=== PATIENT | female | born 1995 | race Two or more races ===

== ENCOUNTER 2025-04-23 20:21 | Observation (INO) | payer MEDICAID, SELFPAY ==
[2025-04-23] VITALS (9 sets, daily range): BP systolic 103; BP diastolic 61; PULSE 87–121; RESP 16–98; TEMP 36.6; O2SAT 97–99; BMI 35.4
== END 2025-04-23 21:15 | disposition home or self-care (01) ==
PROVIDERS: Admitting Provider Obstetrics & Gynecology; PCP Specialist; Visit Provider Obstetrics & Gynecology
DX: O26.853 Spotting complicating pregnancy, third trimester (principal); Z3A.31 31 weeks gestation of pregnancy
CPT/HCPCS: 59025; 59899

== ENCOUNTER 2025-05-10 17:36 | Observation (INO) | payer MEDICAID, SELFPAY ==
[2025-05-10] VITALS (33 sets, daily range): BP systolic 92–109; BP diastolic 56–71; PULSE 73–117; RESP 18–96; TEMP 36.9–37.1; O2SAT 96–100; BMI 36.7
--- NOTE | 2025-05-10 18:02 | XR_ITS ---
Examination: Complete OB ultrasound greater than 14 weeks Date and time of exam: May 10, 2025 2017 hours INDICATION: Pelvic contractions beginning 4 days ago Findings: Viable intrauterine single fetus with single amniotic sac presentation transverse Cardiac motion 141 BPM Placenta fundal grade 2 Umbilical cord insertion seen Amniotic fluid index 10.6 cm spine transverse Cervix 5.5 cm Ovaries are obscured by the uterus 20 mm uterine body and 34 mm uterine fundal masses as well as 12 mm mass in the lower uterus. Composite estimated gestational age based on BPD, head circumference, abdominal circumference, femur length is 32 weeks 4 days Estimated weight 2092 g. Survey of intracranial anatomy, spinal anatomy, abdominal anatomy, four-chamber heart performed with no abnormalities identified. Impression: Viable intrauterine gestation transverse presentation.
[2025-05-10] MEDS: RINGERS LACTATED 1000 ML 1,000 ML 125 ML IV (18:14)
[2025-05-10 18:39] LABS: Collection Type, Urine Clean Catch
[2025-05-10 18:56] LABS: Amorphous Crystals,Urine Present (Absent); Bacteria,Urine Rare; Bilirubin,Urine Negative (Negative); Blood,Urine Negative (Negative); Clarity,Urine Turbid (Clear/Hazy); Color,Urine Yellow (Lt Yel-Yel); Glucose, Urine Negative (Negative); Ketones,Urine Negative (Negative); Leukocyte Esterase,Urine Positive (Negative); Nitrite,Urine Negative (Negative); Protein,Urine Trace (Neg - Trace); RBC,Urine 5 /hpf (0-3); Specific Gravity,Urine 1.021 (1.001-1.035); Squamous Epithelial Cell,Urine 18 /hpf (0-5); Urobilinogen,Urine Negative mg/dL (0.0-1.0); WBC,Urine 12 /hpf (0-5)
[2025-05-10] MEDS: ACETAMINOPHEN 500 MG TABLET 1000 MG PO (19:12)
--- NOTE | 2025-05-10 21:42 | PD.ADDPROG ---
Addendum Progress Note Addendum Date of report being addended: 05/10/25 Narrative: The patient is a 29-year-old -0-0-1 history of with myomectomy with Dr. Limon in 2018. She is seeing Dr Dodge for this . She was downstairs in the ER with her mother who apparently has suffered a recent stroke and patient began having abdominal cramping. She was brought up to triage for further evaluation. She is 33 weeks and has a scheduled at 37 weeks. The baby is breech on ultrasound and today's ultrasound reveals some small fibroids present. She was having some irregular irritability on the monitor but was given a liter of fluids. Ultrasound reveals baby to be adequate size with adequate JAIME. Her urine does have some leukocyte esterase and a culture is pending. The plan will be to have patient go home and rest, push fluids and call Dr Dodge's office for follow-up especially regarding her urinalysis and culture results.
== END 2025-05-10 21:48 | disposition home or self-care (01) ==
PROVIDERS: Admitting Provider Obstetrics & Gynecology; Visit Provider Obstetrics & Gynecology
DX: O26.893 Other specified pregnancy related conditions, third trimester (principal); M54.9 Dorsalgia, unspecified; O32.2XX0 Maternal care for transverse and oblique lie, not applicable or unspecified; Z3A.33 33 weeks gestation of pregnancy
CPT/HCPCS: 59025; 59899; 76805; 81001; 87086; J7120; A9270

== ENCOUNTER 2025-05-14 19:51 | Observation (INO) | payer MEDICAID, SELFPAY ==
[2025-05-14] VITALS (26 sets, daily range): BP systolic 98–116; BP diastolic 54–73; PULSE 85–123; RESP 18; TEMP 37.3; O2SAT 96–100; BMI 37.0
[2025-05-14] MEDS: RINGERS LACTATED 1000 ML 1,000 ML 999 ML IV (21:22)
[2025-05-14] MEDS: ACETAMINOPHEN 500 MG TABLET 1000 MG PO (21:23)
[2025-05-14 21:54] LABS: Collection Type, Urine Voided
[2025-05-14 22:03] LABS: FFN Specimen Descripton Clr Colrless Aqueous; Fetal Fibronectin Negative (Negative)
[2025-05-14 22:19] LABS: Bacteria,Urine Rare; Bilirubin,Urine Negative (Negative); Blood,Urine Negative (Negative); Clarity,Urine Clear (Clear/Hazy); Color,Urine Lt-Yellow (Lt Yel-Yel); Glucose, Urine Negative (Negative); Ketones,Urine 2+ (Negative); Leukocyte Esterase,Urine Positive (Negative); Nitrite,Urine Negative (Negative); PH,Urine 6.5 (5.0-7.0); Protein,Urine Negative (Neg - Trace); RBC,Urine 1 /hpf (0-3); Renal Epithelial Cells,Urine 1 /hpf (0-5); Specific Gravity,Urine 1.006 (1.001-1.035); Squamous Epithelial Cell,Urine 4 /hpf (0-5); Urobilinogen,Urine Negative mg/dL (0.0-1.0); WBC,Urine 3 /hpf (0-5)
== END 2025-05-14 22:40 | disposition home or self-care (01) ==
PROVIDERS: Admitting Provider Obstetrics & Gynecology; Visit Provider Obstetrics & Gynecology
DX: O26.893 Other specified pregnancy related conditions, third trimester (principal); Z3A.34 34 weeks gestation of pregnancy; M54.9 Dorsalgia, unspecified
CPT/HCPCS: 59025; 59899; 81001; 82731; J7120; A9270

== ENCOUNTER 2025-05-20 15:51 | Observation (INO) | payer MEDICAID, SELFPAY ==
[2025-05-20] VITALS (39 sets, daily range): BP systolic 115; BP diastolic 73; PULSE 85–108; RESP 20–98; TEMP 36.4; O2SAT 86–99; BMI 36.4
== END 2025-05-20 19:45 | disposition home or self-care (01) ==
PROVIDERS: Admitting Provider Specialist; Visit Provider Specialist
DX: O26.893 Other specified pregnancy related conditions, third trimester (principal); Z3A.35 35 weeks gestation of pregnancy; R10.9 Unspecified abdominal pain; M54.9 Dorsalgia, unspecified; K08.89 Other specified disorders of teeth and supporting structures
CPT/HCPCS: 59025; 59899; A9270

== ENCOUNTER 2025-05-27 16:14 | Outpatient (CLI) | payer MEDICAID, SELFPAY ==
[2025-05-27 16:24] VITALS: BP 109/72; PULSE 101
[2025-05-27 16:27] VITALS: BMI 37.0
[2025-05-27 16:28] VITALS: BP 109/72; PULSE 100; RESP 16; RESP 98; TEMP 37.1
[2025-05-27] MEDS: BETAMET ACET/BETAMET NA PH (Celestone) 6 MG/ML VIAL 12 MG IM (16:56)
== END 2025-05-27 17:00 | disposition home or self-care (01) ==
LOC: S4S1 16:17 → S4SX 16:18
PROVIDERS: Referring Provider Obstetrics & Gynecology; Visit Provider Obstetrics & Gynecology
DX: Z34.90 Encounter for supervision of normal pregnancy, unspecified, unspecified trimester (principal); Z36.9 Encounter for antenatal screening, unspecified; Z3A.00 Weeks of gestation of pregnancy not specified
CPT/HCPCS: 59025; 96372; J0702

== ENCOUNTER 2025-05-28 17:35 | Outpatient (CLI) | payer MEDICAID, SELFPAY ==
[2025-05-28 17:43] VITALS: BP 96/53; PULSE 88
[2025-05-28 17:54] VITALS: BP 96/53; PULSE 88; RESP 16; RESP 98; TEMP 36.5; BMI 35.7
[2025-05-28] MEDS: BETAMET ACET/BETAMET NA PH (Celestone) 6 MG/ML VIAL 12 MG IM (18:16)
== END 2025-05-28 18:35 | disposition home or self-care (01) ==
LOC: S4S1 17:37 → S4SX 17:40
PROVIDERS: Referring Provider Specialist; Visit Provider Specialist
DX: Z34.83 Encounter for supervision of other normal pregnancy, third trimester (principal); Z36.9 Encounter for antenatal screening, unspecified; Z3A.36 36 weeks gestation of pregnancy
CPT/HCPCS: 59025; 96372; J0702

== ENCOUNTER 2025-06-03 05:10 | Inpatient (IN) | payer MEDICAID, SELFPAY ==
--- NOTE | 2025-05-31 09:35 | ESHP_ITS ---
RE: LISA JEFFERSON : 1995 DATE OF ADMISSION: 06/03/2025 DATE OF SURGERY: 06/03/2025 HISTORY OF PRESENT ILLNESS: This is a 30-year-old 2, para 1 with due date of 06/24/2025 with intrauterine at 37 weeks, who presents for repeat delivery and she is multiparous and desires voluntary sterilization. The delivery is being done at 37 weeks due to a history of a prior myomectomy. She reports occasional contractions. She denies any leaking or bleeding. She reports normal movements. PAST MEDICAL HISTORY: Leiomyomatous uterus, chronic low back pain. PAST SURGICAL HISTORY: Abdominal myomectomy 08/25/2018. ALLERGIES: NO KNOWN DRUG ALLERGIES. MEDICATIONS: multivitamin 1 p.o. daily. OBSTETRIC HISTORY: 08/25/2018, 40 weeks delivery with myomectomy performed at the time of the delivery. SOCIAL HISTORY: She denies any alcohol, drug use, or smoking. FAMILY HISTORY: Son has autism and hypospadias. Father of the baby also has a child with a different partner with autism. REVIEW OF SYSTEMS: She denies any chest pain, palpitations, cough, fever, shortness of breath or lower extremity pain. PHYSICAL EXAMINATION: VITAL SIGNS: Blood pressure 129/77, heart rate 88, respirations 18, temperature 98.6, weight 218 pounds. HEENT: Oropharynx and sclerae are clear. LUNGS: Clear to auscultation bilaterally. HEART: Regular rate and rhythm. ABDOMEN: Gravid, term size, old Pfannenstiel scar noted. PELVIC: Deferred. EXTREMITIES: Nontender. SKIN: No gross rashes or lesions. NEUROLOGIC: No focal deficit. ASSESSMENT: Intrauterine at 37 weeks, previous myomectomy, previous delivery, elects repeat delivery, multiparity, desires voluntary sterilization. PLAN: Repeat delivery and bilateral tubal ligation. Informed consent was obtained. The patient was made aware of the risks, complications, alternatives, and benefits of the proposed procedure and she agrees. DT: 09:02:03 TT: 09:34:00 Ref: [id number] - TID: [id number] [facility]
[2025-05-31 11:59] LABS: Basophils # (Auto) 0.0 Thou/mm3 (0.0-0.2); Basophils % (Auto) 0 % (0-2.5); Eosinophils # (Auto) 0.1 Thou/mm3 (0.0-0.5); Eosinophils % (Auto) 1 % (0-10); Hematocrit 34.7 % (36.0-46.0); Hemoglobin 11.6 g/dL (12.0-16.0); Immature Granulocytes Auto 0.11 Thou/mm3 (0.00-0.00); Lymphocytes # (Auto) 2.8 Thou/mm3 (1.0-4.8); Lymphocytes % (Auto) 26 % (10-50); Mean Corpuscular HGB Conc 33.4 g/dl (31.0-37.0); Mean Corpuscular Hemoglobin 26.2 pg (25.0-35.0); Mean Corpuscular Volume 79 fL (80-100); Monocytes # (Auto) 0.7 Thou/mm3 (0.0-0.8); Monocytes % (Auto) 6 % (0-12); Neutrophils # (Auto) 6.9 Thou/mm3 (1.8-7.7); Neutrophils % (Auto) 65 % (37-80); Nucleated Red Blood Cell # 0.00 Thou/mm3 (0.00-0.00); Nucleated Red Blood Cell % 0 /100 WBC (0); Platelet Count 451 Thou/mm3 (140-440); RDW Standard Deviation 44.7 fL (36.4-46.3); Red Blood Count 4.42 Miln/mm3 (4.00-5.20); White Blood Count 10.6 Thou/mm3 (3.6-11.0)
[2025-05-31 12:31] LABS: INR 1.0 (0.9-1.3); Partial Thromboplastin Time 31.1 Seconds (22.0-36.0); Prothrombin Time 11.0 Seconds (9.0-12.2)
[2025-05-31 12:35] LABS: Alanine Aminotransferase 26 U/L (10-49); Albumin, Serum 3.8 gm/dL (3.5-5.0); Albumin/Globulin Ratio 1.3 (1.2-2.2); Alkaline Phosphatase 315 U/L (46-116); Anion Gap 14 (7-16); Aspartate Amino Transferase 37 U/L (0-34); BUN/Creatinine Ratio 10 Ratio (12-20); Bilirubin,Total 0.8 mg/dL (0.3-1.2); Blood Urea Nitrogen 6 mg/dL (9-23); Calcium 9.1 mg/dL (8.3-10.6); Calcium (Corrected) 9.3 mg/dL (8.5-10.1); Carbon Dioxide 21.4 mMol/L (20.0-31.0); Chloride 105 mMol/L (98-107); Creatinine (Component) 0.6 mg/dL (0.6-1.3); Globulin 2.9 gm/dL (2.3-3.5); Glucose 83 mg/dL (74-106); Osmolality,Calculated 276 (275-295); Potassium 4.0 mMol/L (3.4-5.1); Sodium 140 mMol/L (136-145); Total Protein 6.7 gm/dL (5.7-8.2); eGFR > 60 See Note
[2025-05-31 12:38] LABS: Syphilis Nonreactive (Nonreactive)
[2025-06-03] VITALS (38 sets, daily range): BP systolic 0–120; BP diastolic 0–69; PULSE 71–112; RESP 16–26; TEMP 36.6–37.1; O2SAT 95–100; BMI 36.3
[2025-06-03] MEDS: RINGERS LACTATED 1000 ML 1,000 ML 100 ML IV ×2 (05:39→21:29)
[2025-06-03 05:54] LABS: Basophils # (Auto) 0.0 Thou/mm3 (0.0-0.2); Basophils % (Auto) 0 % (0-2.5); Eosinophils # (Auto) 0.1 Thou/mm3 (0.0-0.5); Eosinophils % (Auto) 1 % (0-10); Hematocrit 34.0 % (36.0-46.0); Hemoglobin 11.5 g/dL (12.0-16.0); Immature Granulocytes Auto 0.09 Thou/mm3 (0.00-0.00); Lymphocytes # (Auto) 2.6 Thou/mm3 (1.0-4.8); Lymphocytes % (Auto) 21 % (10-50); Mean Corpuscular HGB Conc 33.8 g/dl (31.0-37.0); Mean Corpuscular Hemoglobin 26.3 pg (25.0-35.0); Mean Corpuscular Volume 78 fL (80-100); Monocytes # (Auto) 0.6 Thou/mm3 (0.0-0.8); Monocytes % (Auto) 5 % (0-12); Neutrophils # (Auto) 8.6 Thou/mm3 (1.8-7.7); Neutrophils % (Auto) 71 % (37-80); Nucleated Red Blood Cell # 0.00 Thou/mm3 (0.00-0.00); Nucleated Red Blood Cell % 0 /100 WBC (0); Platelet Count 423 Thou/mm3 (140-440); RDW Standard Deviation 44.5 fL (36.4-46.3); Red Blood Count 4.37 Miln/mm3 (4.00-5.20); White Blood Count 12.0 Thou/mm3 (3.6-11.0)
[2025-06-03 06:42] LABS: Syphilis Nonreactive (Nonreactive)
[2025-06-03] MEDS: ceFAZolin/D5W 2 GM IV 2 GM/100 ML BAG IV (07:28)
[2025-06-03] MEDS: FAMOTIDINE INJ 10 MG/ML VIAL 2 ML 20 MG IV (07:28)
[2025-06-03] MEDS: CITRIC ACID/SODIUM CITR 15 ML UDC (BICITRA) 30 ML PO (07:28)
--- NOTE | 2025-06-03 07:29 | PD.GYNPROC ---
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 Bilateral salpingectomy. Indication: Viable IUP 37w0d Prior myomectomy. Previous C/S Elects Repeat C/S Multiparity Desires Voluntary Sterilization. Pre-Op diagnosis: Viable IUP 37w0d Prior myomectomy. Previous C/S Elects Repeat C/S Multiparity Desires Voluntary Sterilization. Leiomyomatous uterus. Post-Op diagnosis: Viable IUP 37w0d Prior myomectomy. Previous C/S Elects Repeat C/S Multiparity Desires Voluntary Sterilization. Leiomyomatous uterus. Anesthesia type: Spinal Procedure description: After proper informed consent was obtained and the patient was made aware of the risks, complications, alternatives and benefits of the proposed procedure she was taken to the operating room where she underwent induction of spinal anesthesia. She was prepped and draped in the usual sterile fashion. A timeout was performed.? A Pfannenstiel skin incision was made with the scalpel and carried through to the underlying layer of fascia with the Bovie. The fascia was nicked in the midline incision and the incision was extended bilaterally with the Bovie. The inferior aspect of the fascial incision was grasped with Toy clamps elevated and the underlying rectus muscle dissected off with the Bovie. The superior aspect the fascial incision was grasped with Toy clamps elevated and the underlying rectus muscle dissected off with the Bovie. The rectus muscles were in the midline. The peritoneum was grasped between 2 Orr clamps and entered sharply with the Metzenbaum scissors. The peritoneum was extended superiorly and inferiorly with good visualization of the bladder. The vesicouterine peritoneum was incised transversely and the bladder flap created digitally. A Voss blade was inserted. A low transverse incision was made in the uterus with a scapel and the incision was extended digitally. The 's head delivered and the mouth and nose were suctioned with the bulb suction. The shoulder and body delivered atraumatically. The cord was clamped after 30 second delayed cord clamping and the cord was cut.? The infant was handed off to the waiting Pediatric staff, cord blood was collected for lab testing. The placenta was removed complete and intact. The uterus was exteriorized and cleared of all clots and debris. The uterine incision was closed with #1-0 chromic catgut suture in a running interlocking fashion. A second layer of the same suture was used to imbricate the first layer and obtain excellent hemostasis. The vesicouterine peritoneum was closed with 2-0 chromic catgut suture in a running fashion. Attention was turned to the left fallopian tube which was grasped at the fimbriated end with a Somerset clamp and using the Enseal X-1 large jaw a left salpingectomy was performed. Hemostasis achieved. Attention was turned to the right fallopian tube which was grasped at the fimbriated end with a Somerset clamp and using the Enseal X-1 large jaw a left salpingectomy was performed. Hemostasis achieved. The firm uterus was returned to the abdomen. The gutters were cleared of all clots and debris. The adnexae were revisualized along with the lower uterine segment and all was hemostatic. The peritoneum was closed with 0 chromic catgut suture in running fashion. The rectus muscle was closed with 0 chromic catgut suture. The fascia was closed with 0 Vicryl beginning at each angle and ending in the center in a running fashion. The subcutaneous tissue was irrigated with warmed normal saline solution and found to be hemostatic. The subcutaneous tissue was closed with 2-0 chromic catgut suture in a running fashion. The skin was closed with 4-0 Monocryl. A Dermabond Prineo dressing was applied and a sterile pressure dressing was applied.? She tolerated the procedure well. Counts were correct. I discussed with the patient the nature of her condition, intraoperative findings and expectation for recovery all questions answered. Specimen: left tube and right tube Findings: Live Male , APGARS 9/9, clear amniotic fluid. Uterus with multiple intramural myomas: 3 biggest: posterior 3 x 3 cm, 2 x 2 cm and anterior 3 x 3 cm. Ovaries and fallopian tubes within normal limits. Placenta removed complete and intact. Complications: none Surgical staff Operation Date: 06/03/25 07:45 <No data on this case meets the specified criteria> Ariel Esteban LINUX SERVER ADMINISTRATOR Diagnosis Discharge Diagnosis (1) delivery delivered: Status: Acute Problem List Completed Was Problem List Reviewed/Reconciled?: Yes
--- NOTE | 2025-06-03 07:42 | PD.LDDS ---
DS: Providers Provider Date of admission: 06/03/25 05:10 Primary care physician: YANG Frye Admitting Provider: Robbin Dodge MD Attending Provider on Admission: Robbin Dodge MD Attending Provider on DC: Robbin Dodge MD Discharging Provider: Robbin Dodge MD DS: Diagnosis Discharge Diagnosis (1) delivery delivered: Status: Acute (2) Sterilization: Status: Acute Problem List Completed Was Problem List Reviewed/Reconciled?: Yes Summary/Hosp Course Peripartum Data Procedures: Procedures Operation Date: 06/03/25 07:45 <No data on this case meets the specified criteria> Time Spent with Patient Time attestation: Total time spent providing and/or coordinating discharge services: Exam Vital Signs Temp Pulse Resp BP Pulse Ox O2 Del Method 98.4 F 88 18 111/69 98 Room Air 06/03/25 05:26 06/03/25 05:26 06/03/25 05:26 06/03/25 05:26 06/03/25 07:13 06/03/25 05:26 Discharge Plan Plan Patient Disposition: HOME (Self Care) Prescriptions/Referrals Prescriptions/Med Rec: Discontinued cefuroxime axetil 500 mg tablet 500 mg PO Q12H Qty: 20 0RF No Action PNV cmb#95-ferrous fumarate-FA [] 28 mg iron- 800 mcg Tablet 1 tab PO QDAY hydrocodone-acetaminophen 5-325 mg tablet 1 tab PO Q6H MDD 4 PRN (Reason: pain) Qty: 20 0RF Referrals: Shirley Lemus FNP [Primary Care Provider] - Patient/Caregiver Discharge Instructions Discharge Activity: activity as tolerated Other Discharge Activity Instructions:: She already has a Rx for hydrocodone. Follow up office with Dr oDdge in 1 week. Education Materials: C Section Dc Print Language: Montenegrin Stand Alone Forms: Devi Award Info., Patient Portal Info Letter Planned Discharge Date 06/05/25
--- NOTE | 2025-06-03 08:23 | OBDSUM_ITS ---
Data (Aguilar) Data Hx Section: Yes : 2 Term: 1 : 0 Livin Abortions: Spontaneous & Theraputic: 0 Delivery Data (Aguilar) Labor Data Induction/Augmentation Agent: None ROM date: 06/03/25 ROM time: 07:56 Amniotic membrane rupture type: Artificial Amniotic fluid description: Clear Delivery Data EDC: 06/24/25 EDC calculated by:: LMP/early US confirmation Onset of labor date: 06/03/25 Onset of labor time: :56 Complete dilation date: 06/03/25 Complete dilation time: 07:56 [place] delivery date: 06/03/25 [place] delivery time: :57 Gestational age (weeks): 37 Gestational age (days): 0 Placenta delivery date: 06/03/25 Placenta delivery time: 58 Stage 1 total time: Labor - Stage 1 Duration 0 minutes Delivered by: [place] Delivery nurse: Sary Olmos nurse: Kip Tube Room Supervisor at delivery: Yes (Ashlee) Support person(s) at delivery: FOB Other staff at delivery: Dhiraj BLAKELY C.Mcelhaney Delivery Method Delivery method: Low Transverse Presentation: Vertex position: OA Anesthesia Type Anesthesia Type: Spinal Anesthesia type: Spinal Placenta Placenta delivery description: Manual Removal Cord blood sent to lab: Yes cord blood collection: Cord Blood Type Episiotomy Episiotomy description: None EBL Estimated blood loss (ml): 800 Umbilical Cord cord description: 3 Vessels Additional Procedures Bilateral salpingectomy. Complications Complications: None Data (Aguilar) Data order: 1 [place]'s gender: Male Identification band number: [id number] weight (gms): 6 lb 12.997 oz Weight (pounds): 6 lbs and 13.0 ozs 1 minute: 9 5 minutes: 9
[2025-06-03] MEDS: ACETAMINOPHEN IVPB 1,000 MG/100 ML VIAL 250 MG IV (10:56)
[2025-06-03 12:51] LABS: Basophils # (Auto) 0.0 Thou/mm3 (0.0-0.2); Basophils % (Auto) 0 % (0-2.5); Eosinophils # (Auto) 0.0 Thou/mm3 (0.0-0.5); Eosinophils % (Auto) 0 % (0-10); Hematocrit 37.4 % (36.0-46.0); Hemoglobin 12.1 g/dL (12.0-16.0); Immature Granulocytes Auto 0.11 Thou/mm3 (0.00-0.00); Lymphocytes # (Auto) 0.8 Thou/mm3 (1.0-4.8); Lymphocytes % (Auto) 5 % (10-50); Mean Corpuscular HGB Conc 32.4 g/dl (31.0-37.0); Mean Corpuscular Hemoglobin 26.2 pg (25.0-35.0); Mean Corpuscular Volume 81 fL (80-100); Monocytes # (Auto) 0.2 Thou/mm3 (0.0-0.8); Monocytes % (Auto) 1 % (0-12); Neutrophils # (Auto) 15.6 Thou/mm3 (1.8-7.7); Neutrophils % (Auto) 93 % (37-80); Nucleated Red Blood Cell # 0.00 Thou/mm3 (0.00-0.00); Nucleated Red Blood Cell % 0 /100 WBC (0); Platelet Count 366 Thou/mm3 (140-440); RDW Standard Deviation 46.9 fL (36.4-46.3); Red Blood Count 4.61 Miln/mm3 (4.00-5.20); White Blood Count 16.7 Thou/mm3 (3.6-11.0)
[2025-06-03] MEDS: OXYTOCIN in NS 20 units 20 UNIT/1,000 ML BAG 125 UNIT IV (14:00)
[2025-06-03] MEDS: KETOROLAC INJ 30 MG/ML VIAL IVP ×2 (15:20→21:29)
[2025-06-04] MEDS: SIMETHICONE 80 MG CHEW PO (01:33)
[2025-06-04 03:41] VITALS: BP 107/74; PULSE 82; RESP 18; TEMP 36.9; O2SAT 99
[2025-06-04] MEDS: KETOROLAC INJ 30 MG/ML VIAL IVP ×3 (03:50→17:25)
--- NOTE | 2025-06-04 07:28 | PD.LDPPPRG ---
Subjective Subjective Interval history: Patient reports an episode of right shoulder pain radiating to her lower abdomen yesterday evening. The pain is since resolved and the only pain she is having now is incisional area. She is getting adequate pain relief with Toradol. She is voiding and ambulating tolerating a regular diet and passing flatus. She says her vaginal bleeding is less than usual. She denies any chest pain palpitations cough fever shortness of breath or lower extremity pain. Exam Vital Signs Temp Pulse Resp BP Pulse Ox O2 Del Method 98.5 F 82 18 107/74 99 Room Air 06/04/25 03:41 06/04/25 03:41 06/04/25 03:41 06/04/25 03:41 06/04/25 03:41 06/04/25 03:41 Routine Respiratory Exam Comments: CTA B/L Routine Cardiovascular Exam Comments: RRR Routine Abdominal Exam Comments: Dressing dry and intact. Fundus is firm. Routine Extremities Exam Comments: Nontender or edema. Objective Labs 06/03/25 12:34 05/31/25 09:29 Labs: Laboratory Results - last 24 hr 06/03/25 12:34 WBC 16.7 H RBC 4.61 Hgb 12.1 Hct 37.4 MCV 81 MCH 26.2 MCHC 32.4 RDW Std Deviation 46.9 H Plt Count 366 D Neut % (Auto) 93 H Lymph % (Auto) 5 L [place] % (Auto) 1 Eos % (Auto) 0 Baso % (Auto) 0 Neut # (Auto) 15.6 H Lymph # (Auto) 0.8 L [place] # (Auto) 0.2 Eos # (Auto) 0.0 Baso # (Auto) 0.0 Immature Gran # (Auto) 0.11 H Absolute Nucleated RBC 0.00 Immature Gran % 1 H Nucleated RBC % 0 Assessment & Plan Problem List (1) delivery delivered: Status: Acute Assessment and plan: Remove dressing Support Encourge ambulation D/C IV Possible discharge home tomorrow. Assessment Comment Assessment comment: Musculoskeletal pain resolved Monitor for reoccurrence. Pain medicine as needed. Time Spent With Patient Time: Total time spent is greater than 50% in coordination of care (as documented) at patient's floor/unit and/or counseling patient:
[2025-06-04 08:00] VITALS: BP 111/74; PULSE 76; RESP 20; TEMP 36.8; O2SAT 98
[2025-06-04] MEDS: ENOXAPARIN SOD INJ 40 MG/0.4 ML SYRINGE SC (08:26)
[2025-06-04] MEDS: IBUPROFEN TAB 400 MG TABLET 800 MG PO (13:21)
[2025-06-04 13:53] VITALS: BP 108/70; PULSE 88; RESP 20; TEMP 36.6; O2SAT 97
[2025-06-04] MEDS: Milk Of Magnesia Susp 30 ML UDC PO (17:25)
[2025-06-04 17:38] VITALS: BP 111/73; PULSE 78; RESP 20; TEMP 36.7; O2SAT 98
[2025-06-04 20:29] VITALS: BP 107/72; PULSE 86; RESP 18; TEMP 37.1; O2SAT 98
[2025-06-04] MEDS: HYDROcodone/APAP 5/325 TABLET 1 TAB PO (22:41)
[2025-06-05] MEDS: IBUPROFEN TAB 400 MG TABLET 800 MG PO (03:18)
[2025-06-05 03:51] VITALS: BP 102/65; PULSE 80; RESP 16; TEMP 37; O2SAT 98
[2025-06-05 07:20] VITALS: BP 106/69; PULSE 72; RESP 18; TEMP 36.7; O2SAT 97
--- NOTE | 2025-06-05 07:30 | CHAP ---
Patient was visited by a Spiritual Care Volunteer on 06/04/2025 between 0900 and 1100 and received comfort, encouragement, and/or prayer. A blessing was given on infant and family.
[2025-06-05] MEDS: ENOXAPARIN SOD INJ 40 MG/0.4 ML SYRINGE SC (08:32)
[2025-06-05] MEDS: HYDROcodone/APAP 5/325 TABLET 1 TAB PO (08:32)
== END 2025-06-05 12:50 | disposition home or self-care (01) | DRG 539 ==
LOC: S4SX 07:29 → S4NX 08:00
PROVIDERS: Admitting Provider Specialist; PCP Nurse Practitioner Family; Visit Provider Specialist
PROC: 0UL70ZZ Occlusion of Bilateral Fallopian Tubes, Open Approach (ICD-10-PCS; CPT 59514; principal; 2025-06-03 07:30)
DX: O34.211 Maternal care for low transverse scar from previous cesarean delivery (principal); Z30.2 Encounter for sterilization; Z37.0 Single live birth; Z3A.37 37 weeks gestation of pregnancy; D25.9 Leiomyoma of uterus, unspecified; O34.13 Maternal care for benign tumor of corpus uteri, third trimester
CPT/HCPCS: 36415; 80053; 85025; 85610; 85730; 86780; 86850; 86900; 86901; A4314; A4649; J0131; J0689; J1100; J1200; J1650; J1885; J2210; J2274; J2371; J2405; J2590; J3010; J3490; J7120; S0191; A9270; J2270

== ENCOUNTER 2025-06-11 15:03 | Outpatient (AMBR) | payer MEDICAID, SELFPAY ==
--- NOTE | 2025-06-19 13:44 | LACNOTE_ITS ---
Assessment LAC Breast Assessment Breast Assessment Bilateral: Breast Assessment Comment: mom has large breasts, seems to have full but not engorged breasts. mom stated that she has has some pain in the nipple area but is not having as much pain LAC Pain Pain Bilateral Nipple: Pain Intensity: Tender Character of Pain: Burning and Sharp Pain Comment: pain has significantly reduced, but mom thinks she is just used to not because baby is doing a better job at the breast. Alternative Milk Expression Alternative Milk Expression Alternative Method Used: Yes Method Used: Pumping Alternative Method Comment: mom only supplementing a little after each breastfed since baby is doing multiple feeds in 24 hours. at this time they are doing more than 12 feeds. Alternative Method Used Reason: Poor Feeding Alternative Method Produced Milk / Colostrum: Yes Production Amount: 2 Production ounces or mls: ounces Pump Used: Electric Pumping Frequency Per Day: 4 Pumping Frequency Comment: mom only pumps a couple of times a day to give her enough to supplement baby as he does do so great at the breast LAC Assessment Breast Feeding Assessment Date of : 06/03/25 Current Age of baby: 7 (days) Weight: 3090.098 g Current weight of baby: 2806.603 g [place] # of Stool voids in last 24 hrs: 6 Stool Size: Medium Color of Stools: yellow [place] # of Urine voids in last 24 hrs: 8 Color of Urine: light yellow Breast Feeding Ability: Fair [place] Complications: Weight loss and Difficult Latch [place] Complications Comment: baby has tongue and lip tie and possibly buccal pad ties. baby has an appointment for oral tissue tethers tomorrow with [facility]. Activity Level: Awake / Alert and Rooting [place] Muscle Tone: Tense Suck Quality: Areolar Compression Effective Suck: Yes [place] Swallow: Observed Jaw: Clentched [place] Lip Seal: Clicking and Tight Lips Feeding Posistion: Cross Cradle Additional Latch or Posistion Assistance Needed: Minimal Breast Feeding Comment: mom stated that baby ate a little before the consult as he was awake and crying. Breast Feeding Comment: baby nursed on the left side for 12 minutes and fell asleep, when mom moved him to burp him he woke up and gave feeding cues so mom put him on the right breast, he nursed for another 14 minutes. Pre Weight (before feeding): 3061.748 g Post Weight (post feeding): 3121.282 g % gained or lost: 2% Gain LAC Intervention Interventions Tools: Pump Techniques Discussed: Latch and Pumping Discharge Follow Up Appointment Date and Time: as needed Other Referral Made: Yes ([facility]) Feeding Preference at Discharge: Exclusive and Breast Milk with Supplementation LAC Latch Score LATCH Score Latch: Repeat Attempt to Hold Nipple Audible Swallow: Spontaneous, Intermittent, Frequent Nipple Type: Everted After Stimulation Comfort: Red, Small Blisters, Bruises Hold: Minimal Assistance Needed Total Score: 7 LAC [place] Oral Assessment [place] Oral Assessment Prenulum Level: Posterior Lip: Tight Upper Lip Palate: High Dental Referral made: Yes LAC Education Education : Education Topics: Infant Stomach Capacity and Milk Production Education Topic Comment: Infants stomach capacity with regards to bottle feeding with breast milk, talke d paced feeding as well. Teaching Methods: Verbal instruction Resource Information Given: Dental Referral OP DC Assessment Discharge Follow Up Appointment Date and Time: as needed Other Referral Made: Yes ([facility]) Visit Complete?: Yes
== END 2025-06-13 23:59 | disposition home or self-care (01) ==
LOC: HODLAC 15:03
DX: Z39.1 Encounter for care and examination of lactating mother (principal)

== ENCOUNTER 2025-06-16 18:37 | Emergency (ER) | payer MEDICAID, SELFPAY ==
[2025-06-16 18:38] VITALS: BMI 32.3
[2025-06-16 19:03] VITALS: BP 122/76; PULSE 67; RESP 18; TEMP 37; O2SAT 97
--- NOTE | 2025-06-16 19:16 | PD.EDADULT ---
ED General RME/HPI General Chief complaint: General Adult/Misc Complain Stated complaint: C. SECTION INCISION Time Seen by Provider: 06/16/25 19:05 Arrival date/time: 06/16/25 18:37 This is a 30-year-old female that comes into the emergency room with complaints of possible incision opening up. Patient reports that she had a on June 03, 2025. Patient states that she has been doing fine but noticed this morning that she had a little bit of blood oozing from the site approximately 3 mm. There appears to be dried blood in that area. Wound looks well-approximated. No fluctuance. No erythema and patient still has a clear dressing over wound also keeping it together. Patient denies any other symptoms. Patient denies fever or chills. Related Data Home Medications ?Medication ?Instructions ?Recorded ?Confirmed vit no.95-ferrous 1 tab PO QDAY 01/18/18 06/03/25 fumarate 28 mg-folic acid 800 mcg tablet () Previous Rx's ?Medication ?Instructions ?Recorded hydrocodone 5 mg-acetaminophen 325 1 tab PO Q6H PRN pain #20 tabs 05/20/25 mg tablet ibuprofen 600 mg tablet 600 mg PO Q6H PRN pain #30 tabs 06/05/25 Allergies Allergy/AdvReac Type Severity Reaction Status Date / Time No Known Allergies Allergy Verified 06/16/25 18:40 Review of Systems Review of Systems Systems Reviewed: All systems reviewed, normal except as documented Past Medical History Past Medical History RESPIRATORY: Positive Asthma (hx as a child.) ENDOCRINE: Positive Endocrine Disorders and Hypoglycemia (hx of irregular low blood sugars.) PSYCHO/SOCIAL: Positive Anxiety Family History FAMILY HISTORY: Positive Family Cardiac Disorders (mother-HTN) Surgical History SURGICAL: Negative Section Social History SMOKING STATUS: Never smoker SECOND HAND EXPOSURE: No ED Exam Narrative Physical exam: VITAL SIGNS: Reviewed. GENERAL APPEARANCE: Alert and interactive, follows commands, no acute distress, HEAD AND FACE: Non-traumatic. ENT: PERRL, conjuctiva pink and clear, eyelid no trauma, Mucous membrane moist. NECK: Supple, nontender, no nuchal rigidity. CHEST: No tenderness, no crepitus, no paradoxical movement, no retractions. LUNGS: breathing even and unlabored HEART: Regular rate, regular rhythm, cap refill less than 2 seconds ABDOMEN: Soft, nondistended, no guarding, nontender, c section wound looks clean, well-approximated, no fluctuance, no erythema or swelling NEUROLOGICAL: Gross motor function intact sensory function intact, Appropriate for age. MUSCULOSKELETAL: low back nontender, full range of motion. EXTREMITIES: No redness no swelling no skin breakdown on bilateral foot and leg. Distal neurovascular status intact bilateral foot SKIN: Color pink, dry, no rash, no lacerations, no abrasions, no contusions. Course Quality Measures none Vital Signs Vital signs: Vital Signs Temperature 98.6 F 06/16/25 19:03 Pulse Rate 67 06/16/25 19:03 Respiratory Rate 18 06/16/25 19:03 Blood Pressure 122/76 06/16/25 19:03 Pulse Oximetry (%) 97 06/16/25 19:03 Oxygen Delivery Method Room Air 06/16/25 19:03 Discharge Plan Plan Patient Disposition: HOME (Self Care) Patient condition on transfer: Stable Prescriptions/Referrals Prescriptions/Med Rec: No Action PNV no.95-ferrous fumarate-FA [] 28 mg iron- 800 mcg Tablet 1 tab PO QDAY ibuprofen 600 mg tablet 600 mg PO Q6H PRN (Reason: pain) Qty: 30 0RF hydrocodone-acetaminophen 5-325 mg tablet 1 tab PO Q6H MDD 4 PRN (Reason: pain) Qty: 20 0RF Problem List Clinical Impression: Encounter for post surgical wound check Patient/Caregiver Discharge Instructions Discharge Activity: activity as tolerated Education Materials: ED Wound Care Additional Instructions: Follow up with primary provider in 1-2 days. Come back to ED if symptoms change or worsen Print Language: Bulgarian Stand Alone Forms: Devi Award Info., Patient Portal Info Letter PA/TRAVELING REPAIR ACCOUNTANT Supervising Physician PA/TRAVELING REPAIR ACCOUNTANT Supervising Physician: natali HIGH Narrative [facility] hospital course: I spoke to patient at length. Wound looks clean, well-approximated, no fluctuance, no erythema or swellin patient also still has a dressing over wound. That is helping it stay closed. I told patient to continue wearing her abdominal binder I also told her to make an appointment with her SOCIAL PROBLEMS SPECIALIST for follow-up. Patient told to come back to the emergency room if symptoms change or worsen. Patient verbalized understanding. Dragon dictation: Although this document has been carefully reviewed, there may still be some phonetic and other typographical errors. These errors are purely grammatical due to imperfections in the software program and should not be construed in any way to compromise the substance of the patient's medical care during this visit. Clinical Information Provided by none Medical Records Reviewed [facility] Meds/Rx Considered, not Ordered None Labs/Rad/Tests considered, not Ordered None Chronic Illness/Social Conditions which may negatively complicate care or outcome(s)-explain: None or not applicable Lab Interpretation Labs: none Imaging Imaging interpretation: none Medication Administration(s) none Dispositon Disposition: Discharge Home
== END 2025-06-16 19:22 | disposition home or self-care (01) ==
LOC: SERX 19:38
PROVIDERS: Emergency Provider Emergency Medicine
DX: Z39.2 Encounter for routine postpartum follow-up (principal)
CPT/HCPCS: 99282